=== PATIENT | female | born 1990 | race African-American/Black ===

== ENCOUNTER 2022-08-24 16:24 | Outpatient (CLI) | payer BC, SELFPAY ==
--- NOTE | ~2022-08-24 | US_ITS ---
EXAMINATION: US pelvic complete w TV DATE: 08/24/2022 17:42 INDICATION: Dysmenorrhea, abnormal menstrual cycle. TECHNIQUE: Multiple transabdominal and endovaginal sonographic images of the pelvis were obtained. COMPARISON: 07/14/2014 FINDINGS: The uterus measures 8.3 x 4 x 4.6 cm. The endometrial complex measures 12 mm. There is a sm all amount of fluid in the endometrial canal likely related to current menstrual period. A small cyst ic area seen in the myometrium of the lower uterus which could reflect a myometrial cyst. The right o vary measures 2.6 x 2.4 x 2.9 cm. The left ovary measures 2.2 x 2.1 x 2.8 cm. There is normal vascula r flow in the ovaries. There is a small amount of likely physiologic free fluid in the pelvis. IMPRESSION: 1. No sonographic correlate for the patient's symptoms. Reviewed, dictated and finalized at location F. [facility]
== END 2022-08-24 16:25 | disposition home or self-care (01) ==
LOC: ANHIMG 16:29
DX: N92.6 Irregular menstruation, unspecified (principal); N94.6 Dysmenorrhea, unspecified
CPT/HCPCS: 76830; 76856